=== PATIENT | female | born 1990 | race Caucasian/White ===

== ENCOUNTER 2022-12-20 17:04 | Emergency (ER) | payer OTHER ==
[2022-12-20 17:20] VITALS: BP 119/60; PULSE 72; RESP 18; TEMP 98.4; BMI 25.2
[2022-12-20] MEDS ORDERED: IBUPROFEN 600 MG TABLET (FP) PO ONE ×2 (20:15→20:18)
== END 2022-12-20 22:05 | disposition home or self-care (01) ==
LOC: JERFT 17:04
DX: R07.9 Chest pain, unspecified (principal); M79.602 Pain in left arm; M79.10 Myalgia, unspecified site
CPT/HCPCS: 71046-TC-FY; 93005; 93010; 99284-25

== ENCOUNTER 2023-11-28 15:46 | Emergency (ER) | payer OTHER ==
[2023-11-28 16:07] VITALS: BP 97/61; PULSE 82; RESP 18; TEMP 98.8; BMI 24.7
[2023-11-28] MEDS: SODIUM CHLORIDE 0.9% 500 ML INFUS.BAG IV ONE (19:56)
[2023-11-28 20:05] LABS: BASO % 1.3 % (0-2.0); EOS % 3.8 % (0-4.5); HEMOGLOBIN 12.7 GM/dL (10.7-15.3); LYMPH % 51.4 % (8-40); MCH 29.1 pg (25.7-33.7); MCHC 33.5 g/dl (32.0-36.0); MEAN CELL VOLUME 86.9 fl (80-96); MEAN PLT VOLUME 8.9 fl (7.5-11.1); MONO % 6.6 % (3.8-10.2); NEUT % 36.9 % (42.8-82.8); PLATELET COUNT 362 10^3/uL (134-434); RBC 4.37 M/mm3 (3.60-5.2); RDW 13.5 % (11.6-15.6); WHITE BLOOD COUNT 5.8 K/mm3 (4.0-10.0)
[2023-11-28 20:23] LABS: CALCIUM 9.5 mg/dL (8.5-10.1)
[2023-11-28 20:24] LABS: BLOOD UREA NITROGEN 12.3 mg/dL (7-18)
[2023-11-28 20:27] LABS: CREATININE 0.7 mg/dL (0.55-1.3)
[2023-11-28 20:29] LABS: BILIRUBIN,TOTAL 1.4 mg/dL (0.2-1); TOT PROT 7.4 g/dl (6.4-8.2)
== END 2023-11-28 21:15 | disposition home or self-care (01) ==
LOC: JER 15:46
DX: R42 Dizziness and giddiness (principal); H93.13 Tinnitus, bilateral; R51.9 Headache, unspecified
CPT/HCPCS: 36415; 80053; 84484; 84703; 85025; 93005; 93010; 99284-25

== ENCOUNTER 2023-12-07 16:48 | Emergency (ER) | payer OTHER ==
[2023-12-07 17:09] VITALS: BP 110/58; PULSE 58; RESP 16; TEMP 98.4; BMI 24.3
[2023-12-07 18:35] LABS: EPI CELLS 7 /uL (0-25.1); HYALINE CASTS 1 /uL (0-3.1); PH,URINE 6.5 (5.0-8.0); URINE APPEARANCE CLEAR; URINE BACTERIA 28 /uL (0-1359); URINE BILIRUBIN NEGATIVE (NEGATIVE); URINE COLOR YELLOW; URINE GLUCOSE (UA) NEGATIVE (NEGATIVE); URINE KETONE 1+ (NEGATIVE); URINE LEUK ESTERASE NEGATIVE (NEGATIVE); URINE NITRITE NEGATIVE (NEGATIVE); URINE PROTEIN NEGATIVE (NEGATIVE); URINE RBC 111 /uL (0-23.9); URINE UROBILINOGEN 0.2 mg/dL (0.2-1.0); URINE WBC 4 /uL (0-25.8)
[2023-12-07 18:36] LABS: HCG,QUALITATIVE URINE Negative
[2023-12-07] MEDS ORDERED: ACETAMINOPHEN INJECTION 100 ML ONE (19:18)
[2023-12-07] MEDS ORDERED: METOCLOPRAMIDE HCL INJECTION 10 MG/2 ML VIAL ONE (19:18)
[2023-12-07] MEDS: SODIUM CHLORIDE 1,000 ML IV STA (19:30)
[2023-12-07] MEDS: ACETAMINOPHEN 1000 MG/100 ML BAG IVPB ONE (19:30)
[2023-12-07] MEDS: METOCLOPRAMIDE HCL INJECTION 10 MG/2 ML VIAL IVPUSH ONE (19:30)
[2023-12-07] MEDS: KETOROLAC TROMETHAMINE 15 MG/ML VIAL IVPUSH ONE (19:40)
[2023-12-07] MEDS ORDERED: KETOROLAC TROMETHAMINE 15 MG/ML VIAL ONE (19:57)
== END 2023-12-07 20:33 | disposition home or self-care (01) ==
LOC: JER 16:48
PROC: 3E033NZ Introduction of Analgesics, Hypnotics, Sedatives into Peripheral Vein, Percutaneous Approach (ICD-10-PCS; principal; 2023-12-07)
PROC: 3E0333Z Introduction of Anti-inflammatory into Peripheral Vein, Percutaneous Approach (ICD-10-PCS; 2023-12-07)
PROC: 3E033GC Introduction of Other Therapeutic Substance into Peripheral Vein, Percutaneous Approach (ICD-10-PCS; 2023-12-07)
PROC: 3E0337Z Introduction of Electrolytic and Water Balance Substance into Peripheral Vein, Percutaneous Approach (ICD-10-PCS; 2023-12-07)
DX: R51.9 Headache, unspecified (principal); R42 Dizziness and giddiness
CPT/HCPCS: 81003; 84703; 87086; 99284-25; J0131

== ENCOUNTER 2024-03-09 08:25 | Emergency (ER) | payer OTHER ==
[2024-03-09 08:35] VITALS: BMI 24.0
[2024-03-09 10:31] LABS: BASO % 0.8 % (0-2.0); EOS % 4.9 % (0-4.5); HEMATOCRIT 34.8 % (32.4-45.2); HEMOGLOBIN 11.6 GM/dL (10.7-15.3); MCH 29.6 pg (25.7-33.7); MCHC 33.5 g/dl (32.0-36.0); MEAN CELL VOLUME 88.2 fl (80-96); MEAN PLT VOLUME 9.3 fl (7.5-11.1); MONO % 8.6 % (3.8-10.2); NEUT % 50.7 % (42.8-82.8); PLATELET COUNT 324 10^3/uL (134-434); RBC 3.94 M/mm3 (3.60-5.2); RDW 14.3 % (11.6-15.6); WHITE BLOOD COUNT 4.6 K/mm3 (4.0-10.0)
[2024-03-09 10:59] LABS: POTASSIUM 4.8 mmol/L (3.5-5.1)
[2024-03-09 11:01] LABS: ALBUMIN 3.7 g/dl (3.4-5.0); BLOOD UREA NITROGEN 11.5 mg/dL (7-18)
[2024-03-09 11:05] LABS: CREATININE 0.6 mg/dL (0.55-1.3)
[2024-03-09 11:06] LABS: BILIRUBIN,TOTAL 1.6 mg/dL (0.2-1)
[2024-03-09 14:41] VITALS: BP 102/40; PULSE 78; RESP 17; TEMP 98.8
[2024-03-09] MEDS: RHO(D) IMMUNE GLOBULIN 1,500 UNIT DISP.SYRIN IM ONE (15:52)
== END 2024-03-09 17:16 | disposition home or self-care (01) ==
LOC: JER 08:25
PROC: 3E023GC Introduction of Other Therapeutic Substance into Muscle, Percutaneous Approach (ICD-10-PCS; principal; 2024-03-09)
DX: O09.521 Supervision of elderly multigravida, first trimester (principal); O20.0 Threatened abortion; O26.891 Other specified pregnancy related conditions, first trimester; R10.2 Pelvic and perineal pain; Z3A.01 Less than 8 weeks gestation of pregnancy
CPT/HCPCS: 36415; 76817-TC; 80053; 84702; 85025; 86850; 86900; 86901; 96372; 99284-25; J2790